=== PATIENT | female | born 1995 | race Caucasian/White ===

== ENCOUNTER 2020-02-04 07:17 | Inpatient (IN) | payer BC ==
[~2020-02-04] VITALS: Ht 165.1 cm; Wt 67.7 kg
[2020-02-04] VITALS (26 sets, daily range): BP systolic 112–138; BP diastolic 7–82; PULSE 59–114; TEMP 98–98.4
--- NOTE | 2020-02-04 07:30 | NUR ---
Pt arrives on unit ambulatory with spouse for IOL. Changed into clean gown. EFM and toco applied. VSS. Denies LOF, regular ctx, vaginal bleeding and reports GFM. IV started in LW. Labs drawn. LR infusing. N/V present with IV start. Admission assessment completed. Consents signed. Pt updated on POC. Bed locked in low position. Call light within reach. No questions or concerns at this time.
[2020-02-04] MEDS ORDERED: PRENATAL MVI (07:46)
[2020-02-04 08:38] LABS: BASO % 0.1 % (0.0-2.0); EOS % 0.1 % (0-4.0); HEMOGLOBIN 12.3 g/dl (12.5-16.0); LYMPH % 26.8 % (20.0-51.0); MEAN CELL VOLUME 87 fl (80.0-100.0); MEAN CORPUSCULAR HEMOGLOBIN 30 pg (27.0-31.0); MEAN CORPUSCULAR HGB CONC 35 g/dl (33.0-37.0); MEAN PLATELET VOLUME 12.1 fl (7.4-10.4); MONO # 0.5 (0.1-0.6); MONO % 6.7 % (1.7-9.3); PLATELET COUNT 106 K/mm3 (130-400); RED BLOOD COUNT 4.04 M/mm3 (4.10-5.30); REDCELL DISTRIBUTION WIDTH-CV 12.5 % (11.5-14.5)
[2020-02-04 08:46] LABS: HEMATOCRIT 35.3 % (37.0-47.0)
--- NOTE | 2020-02-04 11:55 | NUR ---
1155-Dr. Powers at bedside. SVE per provider C/+2. Pt prepped and coached for delivery. Begins pushing. Moves vertex well. 1203- of viable male attended by Dr. Powers. NCx2. DCC performed. Cord clamped x2 and cut from umbilicus. Care of infant to Lang Tuttle RN. Apgars 9. 1206- of placenta. Fundus firm at umbilicus. Bleeding WNL. Pitocin infusing per protocol. Second degree laceration repaired per provider. Pericare performed. Ice pack applied. Bed locked in low position. Call light within reach. No questions or concerns at this time.
[2020-02-04] MEDS ORDERED: MOTRIN 800800 MG/TAB PO (16:25)
[2020-02-05] VITALS: BP 106/72; PULSE 80; TEMP 97.8
[2020-02-05 07:15] VITALS: BP 113/64; PULSE 75; TEMP 97.5
--- NOTE | 2020-02-05 09:32 | NUR ---
Initial visit; Parents thanked for offering congratulations for the of their son. thanked family for choosing [facility].
--- NOTE | 2020-02-05 13:54 | NUR ---
1330 DISCHARGE INSTRUCTIONS REVIEWED WITH PATIENT. PATIENT VERBALIZED UNDERSTANDING. PATIENT REQUESTING PRESCRIPTION FOR PERCOCET WELL THE IBUPROFEN, "JUST IN CASE". PATIENT NOTIFIED THAT THIS RN WILL CALL DR HERRERA. PATIENT WILL NOTIFY THIS RN WHEN READY TO LEAVE. 133[address] THIS RN SPOKE WITH DR HERRERA'S NURSE. PATIENT TO STOP AT MAIN OFFICE TO DOT COMPLIANCE MANAGER PRESCRIPTION FOR PERCOCET. 1350 PATIENT NOTIFIED OF NEED REQUEST TO DOT COMPLIANCE MANAGER PERCOCET PRESCRIPTION. PATIENT VERBALIZED IT WOULD NOT BE A PROBLEM TO DOT COMPLIANCE MANAGER AFTER DISCHARGE.
--- NOTE | 2020-02-05 14:57 | NUR ---
1435 ALL PERSONAL BELONGINGS GATHERED FROM PATIENT ROOM. PATIENT LEFT AMBULATORY AND IN NO APPARENT DISTRESS. PATIENT ACCOMPANIED BY SPOUSE AND THIS RN.
== END 2020-02-05 14:35 | disposition home or self-care (01) | DRG 807 ==
LOC: OB 07:17 → LDR 07:17 → OB 14:45
PROVIDERS: ADMIT Obstetrics & Gynecology
PROC: 10E0XZZ Delivery of Products of Conception, External Approach (ICD-10-PCS; principal; 2020-02-04)
PROC: 10907ZC Drainage of Amniotic Fluid, Therapeutic from Products of Conception, Via Natural or Artificial Opening (ICD-10-PCS; 2020-02-04)
PROC: 0UQMXZZ Repair Vulva, External Approach (ICD-10-PCS; 2020-02-04)
DX: O69.81X0 Labor and delivery complicated by cord around neck, without compression, not applicable or unspecified (principal); Z37.0 Single live birth; O70.1 Second degree perineal laceration during delivery; Z3A.39 39 weeks gestation of pregnancy
CPT/HCPCS: J2405; J2590; J7120

== ENCOUNTER → 2020-02-11 | Outpatient (CLI) | payer BC ==
[~2020-02-11] MED LIST: MOTRIN 800800 MG/TAB PO; PRENATAL MVI
--- NOTE | 2020-02-11 13:17 | NUR ---
Pt, Deisi Thomas, presents for outpatient consult with 7 day old baby boy, Alfonzo Thomas, and her spouse. They were seen four days ago by Dr. Silvestre, Alfonzo's doctor, for an evaluation because of 7% wt loss and to evaluate effectiveness with his noted tongue tie. Alfnozo was born by on 02/04/2021 and weighed 6#7oz (2920 gms). Discharge weight was 6#5oz, and two days later at his first well baby visit he weighed 5#15oz. Weight today is 6#8.3oz (2958 gms). Pt reports Alfonzo eats 8+ times daily, and has qs voids and stools. After Alfonzo has a weight gain of 1.3oz (34 gms). His tongue is noted to be across his gum when checked during feeding. Pt states Alfonzo nursed about 1.5 hours prior to this feeding. POC: continue ad stephen. F/U: with Dr. Silvestre as scheduled, LC as needed. Questions invited and answered.
== END ==
LOC: LAC 12:54
DX: Z39.1 Encounter for care and examination of lactating mother (principal); Z71.89 Other specified counseling

== ENCOUNTER → 2020-03-03 | Outpatient (CLI) | payer BC ==
--- NOTE | 2020-03-03 13:30 | NUR ---
Pt, Deisi Thomas, presents for outpatient consult with 4 week old baby boy, Alfonzo Thomas. She is accompanied by her spouse. She is here to evaluate milk transfer as Alfonzo nurses for 60+ minutes per feeding. This family was seen for on 02/11/20 for evaluation because Alfonzo has a tongue tie and milk transfer was unclear at that time. He tranfered 1.3oz but was fed within 1.5 hours of that consult. Alfonzo was born on [birth year] and weighed 6#7oz (2920 gms). At our consult 3 weeks ago he weighed 6#8.3oz (2957 gms). Today Alfonzo weighs 7#12.8 oz (3538 gms) so overall gain is doing well. Pt reports Alfonzo will spent over an hour at the breast but does not appear content. He does give a good 3 hour sleep at noc, but in the daytime is generally fussy, not having relaxed alert times. Pt reports mastitis in the left breast; she has been on antibx treatment for 3 days so far, feeling a little better. Pt has tried pumping but states it is too painful; the one time she did collect last week she got about 1.5oz about 1.5 hours after the previous feeding. Alfonzo's initial feeding demonstrated a gain of 0.8oz (22ml). He returns to the breast for another round and has an additional gain of 0.7oz (20ml). Alfonzo is definatly not content. Pt works on pumping after feeding, collecting 6 ml. Pt agrees to try SNS. Alfonzo latches easily, drinking the 6 ml of EBM and 24 ml formula. He appears content initially but did not settle down so he was feed an additional ounce via bottle. Total intake is 3.6oz (104 ml), 44 ml was BM, 60ml from formula. POC: 3 step feeding plan: Breast, supplement (SNS or bottle), pump as time allows. F/U: Alfonzo will be seen for his tongue tie on TuesdayMarch [address] Trinidad at [facility] and Dr. Silvestre next week for his one month appt. Pt will contact this for follow up after tongue tie evaluation and working on supply. Questions invited and answered.
== END ==
LOC: LAC 12:43
DX: Z39.1 Encounter for care and examination of lactating mother (principal); Z71.89 Other specified counseling

== ENCOUNTER → 2023-11-02 | Outpatient (REF) ==
[~2023-11-02] MED LIST changes: +COLACE 100100 MG/CAP PO
== END ==
LOC: COL.CARD 13:25
DX: Z01.810 Encounter for preprocedural cardiovascular examination (principal)